=== PATIENT | male | born 1985 | race Two or more races ===

== ENCOUNTER 2018-12-19 15:30 | Emergency (ER) | payer OTHER, SELFPAY ==
[~2018-12-19] VITALS: Ht 190.5 cm; Wt 102.0 kg
[2018-12-19 16:39] VITALS: BP 147/97
== END 2018-12-19 18:21 | disposition home or self-care (01) ==
LOC: ED 18:05
DX: R07.89 Other chest pain (principal); F41.1 Generalized anxiety disorder; F15.10 Other stimulant abuse, uncomplicated; R06.4 Hyperventilation
CPT/HCPCS: 36415; 71045; 80053; 84484; 85025; 93005; 99284